=== PATIENT | female | born 1965 | race Caucasian/White ===

== ENCOUNTER 2019-07-08 18:07 | Emergency (ER) | payer OTHER ==
[2019-07-08 18:21] VITALS: BP 121/78; PULSE 108; TEMP 97.9; BMI 27.8
[2019-07-08] MEDS ORDERED: ACETAMINOPHEN 1000 MG/100 ML VIAL (NON FORMULARY) IVPB ONE (19:30)
[2019-07-08] MEDS ORDERED: FAMOTIDINE 20 MG/50 ML IVPB 20 MG/50 ML MG IVPB ONE ×2 (19:30→19:42)
[2019-07-08] MEDS ORDERED: SODIUM CHLORIDE 1,000 ML IV STA (19:30)
[2019-07-08] MEDS ORDERED: ONDANSETRON 4 MG/2 ML VIAL IVPUSH ONE (19:30)
[2019-07-08] MEDS ORDERED: ONDANSETRON 4 MG/2 ML VIAL ONE (19:42)
[2019-07-08] MEDS ORDERED: ACETAMINOPHEN INJECTION 100 ML IVPB ONE (19:42)
--- NOTE | 2019-07-08 19:46 | PDOC ---
History of Present Illness - General Chief Complaint: Pain, Acute Stated Complaint: VOMITING PAIN Time Seen by Provider: 07/08/19 19:22 History Source: Patient Exam Limitations: No Limitations Past History - Past Medical History Allergies/Adverse Reactions: Allergies Allergy/AdvReac Type Severity Reaction Status Date / Time No Known Allergies Allergy Verified 07/08/19 18:18 Home Medications: Ambulatory Orders Chlorthalidone 25 mg PO DAILY 07/08/19 - Psycho Social/Smoking Cessation Hx Smoking History: Never smoked Hx Alcohol Use: No Drug/Substance Use Hx: No *Physical Exam - Vital Signs Last Vital Signs Temp Pulse Resp BP Pulse Ox 97.9 F 108 H 18 121/78 99 07/08/19 18:19 07/08/19 18:19 07/08/19 18:19 07/08/19 18:19 07/08/19 18:19 - Physical Exam General Appearance: No: Apparent Distress Respiratory/Chest: positive: Lungs Clear, Normal Breath Sounds. negative: Respiratory Distress Cardiovascular: positive: Regular Rhythm, Regular Rate, S1, S2. negative: Murmur Gastrointestinal/Abdominal: positive: Normal Bowel Sounds, Soft. negative: Tender, Distended, Guarding, Rebound Musculoskeletal: negative: CVA Tenderness, CVA Tenderness (R), CVA Tenderness (L ) Neurologic: positive: Alert ED Treatment Course - LABORATORY CBC & Chemistry Diagram: 07/08/19 19:30 07/08/19 19:30 Medical Decision Making - Medical Decision Making 53 y/o F hx of HTN presents with epigastric burning/pain along with around 5 episodes of NBNB emesis from today. Mentions daughter had similar symptoms last week. Denies fever, sob, cp, diarrhea. Also mentions mild dysuria today. Denies hematuria. Denies prior abdominal/pelvic surgeries. Denies alcohol, smoking or drug use. Could be viral syndrome; ddx: gastritis, ACS, pancreatitis, SBO; also r/o UTI Plan: Labs, EKG, IVF, Pepcid, Zofran, reassess 07/08/19 19:35 EKG: NSR at 93 bpm, no ST-T changes Labs reviewed, slight elevation in liver enzymes Rest unremarkable Urine negative Patient feeling better on reassessment Passed PO challenge stable for dc 07/08/19 20:53 Discharge - Discharge Information Problems reviewed: Yes Clinical Impression/Diagnosis: Gastroenteritis Condition: Stable Disposition: HOME - Admission No - Additional Discharge Information Prescription Drug Monitoring Program (I-STOP) results: I-STOP not reviewed - Follow up/Referral Referrals: Lauro Marks MD [Primary Care Provider] - 2 Days - Patient Discharge Instructions Patient Printed Discharge Instructions: DI for Viral Gastroenteritis -- Adult Additional Instructions: Thank you for choosing [facility]. It was a pleasure taking care of you. You have likely have the stomach bug Recommend plenty of hydration (at least 2-3L of water daily) You may drink pedialyte Eat light food like bananas, rice, applesauce, toast, crackers until feeling better Follow-up with your doctor in 2 day Return to the Emergency Department if your symptoms worsen or persist or have other concerning symptoms. - Post Discharge Activity
[2019-07-08 20:07] LABS: BASO % 0.2 % (0-2.0); EOS % 0.2 % (0-4.5); HEMATOCRIT 41.1 % (32.4-45.2); LYMPH % 10.9 % (8-40); MCH 28.2 pg (25.7-33.7); MEAN CELL VOLUME 82.9 fl (80-96); MEAN PLT VOLUME 7.4 fl (7.5-11.1); MONO % 4.4 % (3.8-10.2); NEUT % 84.3 % (42.8-82.8); PLATELET COUNT 272 K/MM3 (134-434); RBC 4.96 M/mm3 (3.60-5.2); RDW 12.5 % (11.6-15.6); WHITE BLOOD COUNT 9.5 K/mm3 (4.0-10.0)
[2019-07-08 20:29] LABS: ALBUMIN 3.8 g/dl (3.4-5.0); ALK PHOS 129 U/L (45-117); ANION GAP 5 MMOL/L (8-16); BILIRUBIN,TOTAL 0.5 mg/dL (0.2-1); BLOOD UREA NITROGEN 19.4 mg/dL (7-18); CHLORIDE 101 mmol/L (98-107); CO2 32 mmol/L (21-32); CREATININE 0.8 mg/dL (0.55-1.3); GLUCOSE,RANDOM 114 mg/dL (74-106); LIPASE 140 U/L (73-393); POTASSIUM 3.5 mmol/L (3.5-5.1); SGOT/AST 62 U/L (15-37); SGPT/ALT 95 U/L (13-61); SODIUM 138 mmol/L (136-145); TOT PROT 7.6 g/dl (6.4-8.2)
[2019-07-08 20:49] LABS: PH,URINE 7.5 (5.0-8.0); URINE APPEARANCE Clear; URINE BILIRUBIN Negative (NEGATIVE); URINE COLOR Yellow; URINE GLUCOSE (UA) Negative (NEGATIVE); URINE KETONE Negative (NEGATIVE); URINE LEUK ESTERASE Negative (NEGATIVE); URINE NITRITE Negative (NEGATIVE); URINE PROTEIN 1+ (NEGATIVE)
--- NOTE | 2019-07-08 23:24 | PDOC ---
*Physical Exam - Vital Signs Last Vital Signs Temp Pulse Resp BP Pulse Ox 97.9 F 108 H 18 121/78 99 07/08/19 18:19 07/08/19 18:19 07/08/19 18:19 07/08/19 18:19 07/08/19 18:19 ED Treatment Course - LABORATORY CBC & Chemistry Diagram: 07/08/19 19:30 07/08/19 19:30 - ADDITIONAL ORDERS Additional order review: Laboratory Results 07/08/19 07/08/19 19:30 19:30 Sodium 138 Potassium 3.5 Chloride 101 Carbon Dioxide 32 Anion Gap 5 L BUN 19.4 H Creatinine 0.8 Est GFR (CKD-EPI)AfAm 96.19 Est GFR (CKD-EPI)NonAf 83.00 Random Glucose 114 H Calcium 9.0 Total Bilirubin 0.5 AST 62 H ALT 95 H Alkaline Phosphatase 129 H Troponin I < 0.02 Total Protein 7.6 Albumin 3.8 Lipase 140 Urine Color Yellow Urine Appearance Clear Urine pH 7.5 Ur Specific Wood 1.020 Urine Protein 1+ H Urine Glucose (UA) Negative Urine Ketones Negative Urine Blood Negative Urine Nitrite Negative Urine Bilirubin Negative Urine Urobilinogen 2.0 H Ur Leukocyte Esterase Negative 07/08/19 19:30 RBC 4.96 MCV 82.9 MCHC 34.0 RDW 12.5 MPV 7.4 L Neutrophils % 84.3 H Lymphocytes % 10.9 Monocytes % 4.4 Eosinophils % 0.2 Basophils % 0.2 - Medications Given in the ED: ED Medications Discontinued Medications Generic Name Dose Route Start Last Admin Trade Name Freq PRN Reason Stop Dose Admin Acetaminophen 1,000 mg 07/08/19 19:30 07/08/19 20:03 Ofirmev Injection - IVPB 07/08/19 19:31 1,000 mg ONCE ONE Administration Famotidine/Sodium Chloride 20 mg in 50 mls @ 100 mls/hr 07/08/19 19:30 20:03 Pepcid 20 Mg Premixed Ivpb - IVPB 07/08/19 19:59 100 mls/hr ONCE ONE Administration Sodium Chloride 1,000 mls @ 1,000 mls/hr 07/08/19 19:30 07/08/19 20:03 Normal Saline - IV 07/08/19 20:29 1,000 mls/hr ASDIR STA Administration Ondansetron HCl 4 mg 07/08/19 19:30 07/08/19 20:03 Zofran Injection IVPUSH 07/08/19 19:31 4 mg ONCE ONE Administration Medical Decision Making - Medical Decision Making 07/08/19 23:24 Case reviewed, agree with assessment and plan Discharge - Discharge Information Problems reviewed: Yes Clinical Impression/Diagnosis: Gastroenteritis Condition: Stable Disposition: HOME - Follow up/Referral Referrals: Lauro Marks MD [Primary Care Provider] - 2 Days - Patient Discharge Instructions Patient Printed Discharge Instructions: DI for Viral Gastroenteritis -- Adult Additional Instructions: Thank you for choosing [facility] [place]. It was a pleasure taking care of you. You have likely have the stomach bug Recommend plenty of hydration (at least 2-3L of water daily) You may drink pedialyte Eat light food like bananas, rice, applesauce, toast, crackers until feeling better Follow-up with your doctor in 2 day Return to the Emergency Department if your symptoms worsen or persist or have other concerning symptoms. - Post Discharge Activity
--- NOTE | 2019-07-09 11:30 | EKG ---
Test Reason : Blood Pressure : / mmHG Vent. Rate : 093 BPM Atrial Rate : 093 BPM P-R Int : 198 ms QRS Dur : 090 ms QT Int : 380 ms P-R-T Axes : 029 017 045 degrees QTc Int : 472 ms NORMAL SINUS RHYTHM POSSIBLE LEFT ATRIAL ENLARGEMENT NO PREVIOUS ECGS AVAILABLE Confirmed by TISH AWAD MD ([id number]) on 07/09/2019 11:30:02 AM Referred By: Confirmed By:TISH AWAD MD
== END 2019-07-08 21:00 | disposition home or self-care (01) ==
LOC: JER 18:07
PROC: 3E033GC Introduction of Other Therapeutic Substance into Peripheral Vein, Percutaneous Approach (ICD-10-PCS; principal; 2019-07-08)
PROC: 3E033NZ Introduction of Analgesics, Hypnotics, Sedatives into Peripheral Vein, Percutaneous Approach (ICD-10-PCS; 2019-07-08)
PROC: 3E033GC Introduction of Other Therapeutic Substance into Peripheral Vein, Percutaneous Approach (ICD-10-PCS; 2019-07-08)
DX: K52.9 Noninfective gastroenteritis and colitis, unspecified (principal)
CPT/HCPCS: 36415; 80053; 81003; 83690; 84484; 85025; 87086; 93005; 93010; 96365; 96375; 99284-25; J0131; J7030

== ENCOUNTER 2021-01-23 13:20 | Emergency (ER) | payer OTHER ==
[2021-01-23 13:37] VITALS: BP 118/79; PULSE 93; TEMP 98.7; BMI 29.7
[2021-01-23] MEDS ORDERED: ACETAMINOPHEN 325 MG TABLET (FP) ONE (14:26)
[2021-01-23] MEDS ORDERED: ONDANSETRON *ODT* 4 MG TABLET ONE (14:26)
[2021-01-23] MEDS ORDERED: ONDANSETRON 4 MG TABLET PO ONE (14:27)
[2021-01-23] MEDS ORDERED: ACETAMINOPHEN 500 MG TABLET (FP) PO ONE (14:27)
[2021-01-23] MEDS ORDERED: FAMOTIDINE 20 MG TABLET PO ONE (14:27)
[2021-01-23] MEDS ORDERED: FAMOTIDINE 20 MG TABLET ONE (14:27)
[2021-01-23] MEDS ORDERED: ACETAMINOPHEN 500 MG TABLET (FP) ONE (14:28)
== END 2021-01-23 15:54 | disposition home or self-care (01) ==
LOC: JER 13:20
DX: R10.13 Epigastric pain (principal)
CPT/HCPCS: 99283-25